=== PATIENT | male | born 1985 | race Caucasian/White ===

== ENCOUNTER 2018-01-14 05:40 | Day surgery (SDC) | payer OTHER ==
[~2018-01-14] VITALS: Ht 182.9 cm; Wt 69.0 kg
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
[2018-01-14] MEDS ORDERED: HYDROCODON-ACE1 EA11 PO (08:35)
--- NOTE | 2018-01-14 08:53 | NUR ---
01/14/18 0853 Renu Locke 0834- PT ARRIVES TO PACU AWAKE AND TALKING WITH STAFF. APPEARS SLIGHTLY DROWSY. PT REPORTS NO PAIN OR NAUSEA AT THIS TIME. CMS INTACT. PT IS ABLE TO MOVE HIS TOES. RIGHT LEG ELEVATED ON A PILLOW. 0838- CRYOCUFF PLACED TO PT'S RIGHT LEG. 0850- PT REPORTS MILD NAUSEA, DENIES NEEDING ANY NAUSEA MEDICATION AT THIS TIME. ALCOHOL SWAB PROVIDED TO PT TO SMELL. PT REPORTS THIS IS HELPING HIS NAUSEA.
--- NOTE | 2018-01-14 09:14 | NUR ---
PATIENT ARRIVED FROM PACU, MILDLY NAUSEATED AND CLASSER ADALGISA GAVE 4MG OF IV ZOFRAN. RIGHT LEG DRESSING IS CDI, PATIENT ABLE TO MOVE TOES, REPORTS SOME NUMBNESS FROM BLOCK, CMS OTHERWISE INTACT. PATIENT HAS ICE WATER AND CRACKERS, AT BEDSIDE.
[2018-01-14] MEDS ORDERED: KETOROLAC TROME10 MG PO (09:46)
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
== END 2018-01-14 10:30 | disposition home or self-care (01) ==
LOC: OPS 05:40 → DS 05:40 → OPS 06:45 → DS 06:45 → OPS 10:30
PROVIDERS: Specialist
PROC: 0QPG04Z Removal of Internal Fixation Device from Right Tibia, Open Approach (ICD-10-PCS; principal; 2018-01-14 06:45)
DX: T84.84XA Pain due to internal orthopedic prosthetic devices, implants and grafts, initial encounter (principal); Z88.0 Allergy status to penicillin
CPT/HCPCS: 01390; 64445; 76942; J0690; J1100; J1885; J2250; J2405; J2704; J2795; J3010; J7120

== ENCOUNTER 2019-02-24 08:17 | Emergency (ER) | payer OTHER ==
[~2019-02-24 08:17] MED LIST: HYDROCODON-ACE1 EA11 PO; KETOROLAC TROME10 MG PO
--- NOTE | 2019-02-24 16:53 | EKG ---
[facility] [address] [facility] [place] [address] Signed Normal sinus rhythm Biatrial enlargement Pulmonary disease pattern Abnormal ECG No previous ECGs available Confirmed by NIKKIE UNDERWOOD MD ([id number]) on 02/24/2019 4:53:27 PM Electronically Signed By: NIKKIE UNDERWOOD MD 02/24/19 1653 PATIENT NAME: MACY MENA Electrocardiogram DATE OF : 83 PHYSICIAN: NIKKIE UNDERWOOD MD REPORT #: [id number] REPORT IS CONFIDENTIAL AND NOT TO BE RELEASED WITHOUT AUTHORIZATION
== END 2019-02-24 10:21 | disposition home or self-care (01) ==
LOC: ED 08:17
DX: R07.89 Other chest pain (principal); Z88.0 Allergy status to penicillin
CPT/HCPCS: 71046; 80053; 83735; 84484; 85025; 85379; 93005; 93010; 96374; 99285-25; J1885